=== PATIENT | female | born 1945 | race Caucasian/White ===

== ENCOUNTER 2025-05-24 12:49 | Outpatient (AMB) | payer MEDICARE, SELFPAY ==
--- OUTSIDE RECORDS SUMMARY | 2025-05-24 13:17 | XMS_ITS | Encounter Summary ---
Author Organization [facility] [place], Address [address] [place] [address] Phone Care Team Providers Care Manager Sap Name Role Phone Jhonatan Angel MD Primary Care Provider [phone] Encounter Details Date Type Department Care Team ([facility] Contact Info) Description 03/21/2020 Orders Only [facility] [address] [place] [phone] Edgardo Laurent DO [address] [facility] [place] [address] Persistent proteinuria Social History Tobacco Use Types Packs/Day Years Used Date Smoking Tobacco: Never Assessed Alcohol Use Standard Drinks/Week Comments Yes 0 (1 standard drink = 0.6 oz pure alcohol) Alcoholic Drinks/day: Occasional social drink Comments Unknown Sex and Gender Information Value Date Recorded Sex Assigned at Not on file Legal Sex Female 4:33 PM EST Gender Identity Not on file Sexual Orientation Not on file COVID-19 Exposure Response Date Recorded In the last month, have you been in contact with someone who was confirmed or suspected to have Coronavirus / COVID-19? No / Unsure 2020 1:24 PM EDT documented as of this encounter Plan of Treatment Upcoming Encounters Date Type Department Care Team (Late Contact Info) Description 08/16/2025 3:15 PM EST Office Visit [facility], [address] [place] [phone] Edgardo Laurent DO [address] [place] [address] documented as of this encounter Visit Diagnoses Diagnosis Persistent proteinuria documented in this encounter Care Teams Manager Sap Relationship Specialty Start Date End Date Jhonatan Angel MD [address] PCP - General Internal Medicine 06/17/20 documented as of this encounter
--- OUTSIDE RECORDS SUMMARY | 2025-05-24 13:17 | XMS_ITS | Encounter Summary ---
Author Organization [facility] [place], Address [address] [place] [address] Phone Care Team Providers Care Bus Driver Supervisor Name Role Phone Jhonatan Angel MD Primary Care Provider [phone] Encounter Details Date Type Department Care Team (Late Contact Info) Description 11/11/2023 Orders Only [facility] [address] [place] [phone] Edgardo Laurent DO [address] [facility] [place] [phone] Nephrotic syndrome; Minimal change disease; Type 2 diabetes mellitus with diabetic chronic kidney disease (HCC) Social History Tobacco Use Types Packs/Day Years Used Date Smoking Tobacco: Former Cigarettes Q uit: 09/26/1984 Comments:Smoking History Inf o:Every day Alcohol Use Standard Drinks/Week Comments Yes 0 (1 standard drink = 0.6 oz pure alcohol) Alcoholic Drinks/day: Occasional social drink Comments Unknown Sex and Gender Information Value Date Recorded Sex Assigned at Not on file Legal Sex Female 4:33 PM EST Gender Identity Not on file Sexual Orientation Not on file documented as of this encounter Plan of Treatment Upcoming Encounters Date Type Department Care Team (Late Contact Info) Description 08/16/2025 3:15 PM EST Office Visit [facility] [address] [place] [phone] Edgardo Laurent DO [address] [facility] [place] [address] documented as of this encounter Visit Diagnoses Diagnosis Nephrotic syndrome Minimal change disease Type 2 diabetes mellitus with diabetic chronic kidney disease (HCC) documented in this encounter Care Teams Bus Driver Supervisor Relationship Specialty Start Date End Date Jhonatan Angel MD [address] PCP - General Internal Medicine 06/17/20 documented as of this encounter
--- OUTSIDE RECORDS SUMMARY | 2025-05-24 13:17 | XMS_ITS | Encounter Summary ---
Author Organization [facility] [place], Address [address] [place] [address] Phone Care Team Providers Care Welding Machine Operator Plasma Arc Name Role Phone Jhonatan Angel MD Primary Care Provider [phone] Encounter Details Date Type Department Care Team (Late Contact Info) Description 12/09/2023 Orders Only [facility] [address] [place] [phone] Edgardo Laurent DO [address] [facility] [place] [phone] Nephrotic syndrome; Minimal change disease; Type 2 [...] Visit [facility] [address] [place] [phone] Edgardo Laurent DO [address] [facility] [place] [address] documented as of this encounter Visit Diagnoses Diagnosis Nephrotic syndrome Minimal change disease Type 2 diabetes mellitus with diabetic chronic kidney disease (HCC) documented in this encounter Care Teams Welding Machine Operator Plasma Arc Relationship Specialty Start Date End Date Jhonatan Angel MD [address] PCP - General Internal Medicine 06/17/20 documented as of this encounter
--- OUTSIDE RECORDS SUMMARY | 2025-05-24 13:17 | XMS_ITS | Encounter Summary ---
Author Organization [facility] [place], Address [address] [place] [address] Phone Care Team Providers Care Statement Clerks Supervisor Name Role Phone Jhonatan Angel MD Primary Care Provider [phone] Encounter Details Date Type Department Care Team (Late Contact Info) Description 09/02/2023 Orders Only [facility] [address] [place] [phone] Edgardo Laurent DO [address] [facility] [place] [phone] Nephrotic syndrome; Minimal change disease; Type 2 [...] Visit [facility] [address] [place] [phone] Edgardo Laurent DO [address] [facility] [place] [address] documented as of this encounter Visit Diagnoses Diagnosis Nephrotic syndrome Minimal change disease Type 2 diabetes mellitus with diabetic chronic kidney disease (HCC) documented in this encounter Care Teams Statement Clerks Supervisor Relationship Specialty Start Date End Date Jhonatan Angel MD [address] PCP - General Internal Medicine 06/17/20 documented as of this encounter
--- OUTSIDE RECORDS SUMMARY | 2025-05-24 13:17 | XMS_ITS | Encounter Summary ---
Author Organization [facility] [place], Address [address] [place] [address] Phone Care Team Providers Care Maintenance Mechanic Technician Name Role Phone Jhonatan Angel MD Primary Care Provider Encounter Details Date Type Department Care Team (Late Contact Info) Description 01/06/2024 Orders Only [facility] [address] [place] [place] [address] Edgardo Laurent DO [address] [facility] [place] [phone] Nephrotic syndrome; Minimal change disease; Type 2 [...] Visit [facility] [address] [place] [place] [address] Edgardo Laurent DO [address] [facility] [place] [address] documented as of this encounter Visit Diagnoses Diagnosis Nephrotic syndrome Minimal change disease Type 2 diabetes mellitus with diabetic chronic kidney disease (HCC) documented in this encounter Care Teams Maintenance Mechanic Technician Relationship Specialty Start Date End Date Jhonatan Angel MD [address] PCP - General Internal Medicine 06/17/20 documented as of this encounter
--- OUTSIDE RECORDS SUMMARY | 2025-05-24 13:17 | XMS_ITS | Encounter Summary ---
Author Organization [facility] Address [address] [place] [address] Phone Care Team Providers Care Retort Pre Cooker Name Role Phone Jhonatan Angel MD Primary Care Provider [phone] Encounter Details Date Type Department Care Team (Late Contact Info) Description 03/08/2023 Documentation Only [facility] [address] [place] [address] Edgardo Laurent DO [address] [facility] [place] [address] Social History Tobacco Use Types Packs/Day Years [...] [facility] [address] [facility] [place] [address] Edgardo Laurent DO [address] [facility] [address] [place] [address] documented as of this encounter Visit Diagnoses Not on filedocumented in this encounter Care Teams Retort Pre Cooker Relationship Specialty Start Date End Date Jhonatan Angel MD [address] PCP - General Internal Medicine 06/17/20 documented as of this encounter
--- OUTSIDE RECORDS SUMMARY | 2025-05-24 13:17 | XMS_ITS | Encounter Summary ---
Author Organization [facility] Address [address] [place] [address] Phone Care Team Providers Care Finance Professional Name Role Phone Jhonatan Angel MD Primary Care Provider [phone] Encounter Details Date Type Department Care Team (Late Contact Info) Description 05/02/2024 Documentation Only [facility] [address] [place] [address] Edgardo Laurent DO [address] [facility] [place] [address] Social History Tobacco Use Types [...] Visit [facility] [address] [address] [address] [place] [address] Edgardo Laurent DO [address] [facility] [place] [address] documented as of this encounter Visit Diagnoses Not on filedocumented in this encounter Care Teams Finance Professional Relationship Specialty Start Date End Date Jhonatan Angel MD [address] PCP - General Internal Medicine 06/17/20 documented as of this encounter
--- OUTSIDE RECORDS SUMMARY | 2025-05-24 13:17 | XMS_ITS | Encounter Summary ---
Author Organization [address] [address] Care Team Providers Care Pelt Salter Name Role Phone Jhonatan Angel MD Primary Care Provider [phone] Mohit Ibarra Primary Care Provider [phone] Encounter Details Date Type Department Care Team (Late st Contact Info) Description 01/04/2020 Scanned Document [facility] Neurology [address] [address] Alison Blood MD [address] [place] [address] Social History Tobacco Use Types Packs/Day Years Used Date Smoking Tobacco: Never Assessed Comments Unknown Sex and Gender Information Value Date Recorded Sex Assigned at Not on file Legal Sex Female 8:55 AM EDT Gender Identity Not on file Sexual Orientation Not on file documented as of this encounter Plan of Treatment Not on file documented as of this encounter Visit Diagnoses Not on filedocumented in this encounter Care Teams Pelt Salter Relationship Specialty Start Date End Date Jhonatan Angel MD [address] [place] [id number] PCP - General Internal Medicine 01/04/20 01/28/20 Mohit Ibarra [address] [place] [address] PCP - General 01/29/20 documented as of this encounter
--- OUTSIDE RECORDS SUMMARY | 2025-05-24 13:17 | XMS_ITS | Encounter Summary ---
Author Organization [facility] Address [address] [place] [address] Phone Care Team Providers Care Clerk Analyst Name Role Phone Jhonatan Angel MD Primary Care Provider [phone] Encounter Details Date Type Department Care Team (Late Contact Info) Description 08/25/2023 Documentation Only [facility] [address] [place] [address] [place] [address] [place] [address] Social History Tobacco Use Types Packs/Day Years [...] Visit [facility] [address] [place] [address] Edgardo Laurent [address] [place] [address] documented as of this encounter Visit Diagnoses Not on filedocumented in this encounter Care Teams Clerk Analyst Relationship Specialty Start Date End Date Jhonatan Angel MD [address] PCP - General Internal Medicine 06/17/20 documented as of this encounter
--- OUTSIDE RECORDS SUMMARY | 2025-05-24 13:17 | XMS_ITS | Encounter Summary ---
Author Organization [facility] [place], Address [address] [place] [address] Phone Care Team Providers Care Cut Out Worker Name Role Phone Jhonatan Angel MD Primary Care Provider [phone] Encounter Details Date Type Department Care Team (Late Contact Info) Description 03/28/2020 Orders Only [facility] [address] [place] [phone] Edgardo Laurent DO [address] [facility] [place] [address] Persistent proteinuria Social History Tobacco [...] Office Visit [facility], [address] [place] [address] Edgardo Laurent DO [address] [place] [address] documented as of this encounter Visit Diagnoses Diagnosis Persistent proteinuria documented in this encounter Care Teams Cut Out Worker Relationship Specialty Start Date End Date Jhonatan Angel MD [address] PCP - General Internal Medicine 06/17/20 documented as of this encounter
--- OUTSIDE RECORDS SUMMARY | 2025-05-24 13:17 | XMS_ITS | Encounter Summary ---
Author Organization [facility] [place], Address [address] [place] [address] Phone Care Team Providers Care Vocational Aide Name Role Phone Jhonatan Angel MD Primary Care Provider [phone] Encounter Details Date Type Department Care Team (Late Contact Info) Description 04/04/2020 Orders Only [facility] [address] [place] [phone] Edgardo Laurent DO [address] [facility] [place] [address] Persistent proteinuria Social History Tobacco [...] Office Visit [facility], [address] [place] [address] Edgardo Laurent DO [address] [place] [address] documented as of this encounter Procedures Procedure Name Priority Date/Time Associated Diagnosis Comments PROTEIN / CREATININE RATIO, URINE Routine 05/30/2020 2:25 PM EDT Persistent proteinuria documented in this encounter Results * (ABNORMAL) Urine Protein / creatinine ratio (05/30/2020 2:25 PM EDT) Protein/Creati ne Ratio 0.81(H) (0-0.2) [facility] Protein, Urine 129 MG/DL [facility] Creatinine, Urine 158.8 MG/DL [facility] Comment: Testing performed or reported by [facility], a Service of [facility], [address] [place] [address] Malachi Dumont MD, Doula Urine specimen (specimen) Urine specimen obtained by clean catch procedure / Unknown 05/30/2020 2:25 PM EDT 05/30/2020 2:40 PM EDT us Edgardo Laurent DO LAB URINE ORDERABLES Final Resu lt [facility] documented in this encounter Visit Diagnoses Diagnosis Persistent proteinuria documented in this encounter Care Teams Vocational Aide Relationship Specialty Start Date End Date Jhonatan Angel MD [address] PCP - General Internal Medicine 06/17/20 documented as of this encounter
--- OUTSIDE RECORDS SUMMARY | 2025-05-24 13:17 | XMS_ITS | Encounter Summary ---
Author Organization [facility] [place], Address [address] [place] [address] Phone Care Team Providers Care Wall Man Name Role Phone Jhonatan Angel MD Primary Care Provider [phone] Encounter Details Date Type Department Care Team (Late Contact Info) Description 05/27/2023 Orders Only [facility] [address] [place] [address] Edgardo Laurent DO [address] [facility] [place] [address] Minimal change disease; Type 2 diabetes mellitus with diabetic nephropathy (HCC); Stage 3a chronic kidney disease (HCC); Essential hypertension Social History Tobacco Use Types Packs/Day Years [...] Visit [facility] [address] [place] [phone] Edgardo Laurent DO [address] [facility] 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) Stage 3a chronic kidney disease (HCC) Essential hypertension HEMOGLOBIN A1C Routine 07/05/2023 1:53 PM EDT 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 DIAGNOSTIC USE: The [place] Diabetes Association (ADA) and the World Health Organization (WHO) recommend the use of HbA1c to diagnose diabetes using a threshold of 6.5%. Patients who have an HbA1c between 5.7% and 6.4% are considered at increased risk for developing diabetes in the future. CAUTION: Falsely low HbA1c results may be observed in patients with hemolytic anemia, homozygous forms of abnormal hemoglobin (e.g. SS, CC, SC), , recent blood loss or hemoglobin F greater than 7%. Fructosamine may be used as an alternate test in these cases. REFERENCE: ADA: Standards of Medical Care in Diabetes 2020, The Journal of Clinical and Applied Research and Education Volume 43, Supplement 1 Testing performed or reported by [facility], a Service of [facility], [address] [place] [address] Wolfgang Moore MD, Basket Turner CLOR# [id number] Blood specimen (specimen) Venous blood / Unknown 07/05/2023 1:53 PM EDT 07/05/2023 1:55 PM EDT Edgardochino Laurent LAB BLOOD ORDERABLES Final Resu lt Performing Organization Address [facility] Co de Phone Number [facility] * (ABNORMAL) Urine Protein / creatinine ratio (07/05/2023 1:53 PM EDT) [facility] Protein/Creati ne Ratio 0.24(H) (0-0.2) [facility] Protein, Urine 6 MG/DL [facility] Creatinine, Urine 24.4 MG/DL [facility] Comment: Testing performed or reported by [facility], a Service of [facility], [address] [place] [address] Wolfgang Moore MD, Basket Turner [facility]# [id number] Urine specimen (specimen) Urine specimen obtained by clean catch procedure / Unknown 07/05/2023 1:53 PM EDT 07/05/2023 1:55 PM EDT Edgardo Laurent LAB URINE ORDERABLES Final Resu lt Performing Organization Address [facility]/ZIP Co de Phone Number [facility] * (ABNORMAL) CBC (07/05/2023 1:53 PM EDT) Pathologist [facility] White Blood Cells 9.0 (4.0-11.0) K/MM3 [facility] RBC 4.74 (4.20-5.40 ) M/MM3 [facility] Hgb 13.1 (11.7-15.5 ) GM/DL [facility] Hematocrit 42.4 (35.7-45.8 ) % [facility] MCV 89.5 (80.0-100. 0) FL [facility] MCH 27.6 (27.0-34.0 ) PG [facility] MCHC 30.9(L) (33.0-37.0 ) g/dL [facility] Platelets 347 (150-460) K/MM3 [facility] RDW-SD 49.1(H) (<47.0) FL [facility] MPV 10.3 (9.4-12.4) FL [facility] nRBC Count 0.0 #/100 WBC'S [facility] NRBC Absolute 0.0 K/MM3 [facility] Comment: Testing performed or reported by [facility], a Service of [facility], [address] [place] [address] Wolfgang Moore MD, Basket Turner CLIA# [id number] Blood specimen (specimen) Venous blood / Unknown 07/05/2023 1:53 PM EDT 07/05/2023 1:55 PM EDT Edgardo Laurent LAB BLOOD ORDERABLES Final Resu lt Performing Organization Address [facility]/ZIP Co de Phone Number [facility] * (ABNORMAL) Cyclosporine level (07/05/2023 1:53 PM EDT) Cyclosporine 99(L) (100-350) NG/ML [facility] Comment: Testing performed or reported by [facility], a Service of [facility], [address] [place] [address] Wolfgang Moore MD, Basket Turner CLIA# [id number] Blood specimen (specimen) Venous blood / Unknown 07/05/2023 1:53 PM EDT 07/05/2023 1:55 PM EDT Edgardo Laurent LAB BLOOD ORDERABLES Final Resu lt [facility] * (ABNORMAL) Comprehensive metabolic panel (07/05/2023 1:53 PM EDT) Glucose 176(H) (70-99) MG/DL [facility] BUN 34(H) (8-23) MG/DL [facility] Creatinine 1.3(H) (0.5-1.0) MG/DL [facility] Sodium 142 (133-145) MMOL/L [facility] Potassium 4.6 (3.6-5.2) MMOL/L [facility] Chloride 105 (98-107) MMOL/L [facility] Bicarbonate (CO2) 24 (22-29) MMOL/L [facility] Anion Gap 13 (4-17) [facility] Albumin 4.2 (3.4-4.8) GM/DL [facility] Calcium 10.5 (8.6-10.5) MG/DL [facility] Total Bilirubin 0.4 (0-1.2) MG/DL [facility] Protein, Total 6.6 (6.2-8.2) GM/DL [facility] A/G Ratio 1.8 [facility] AST (SGOT) 26 (0-32) U/L [facility] Alkaline Phosphatase 181(H) (35-104) U/L [facility] ALT (SGPT) 32 (0-33) U/L [facility] Est GFR Non 41 ML/MIN/1.7 3 M2 [facility] Comment: Creatinine based estimated glomerular filtration (eGFR) in adults is calculated using the National Kidney Foundation recommended 2020 CKD-EPI equation. Estimates GFR from serum creatinine, age and sex. 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
--- OUTSIDE RECORDS SUMMARY | 2025-05-24 13:17 | XMS_ITS | Encounter Summary ---
Author Organization [facility] [place], Address [address] [place] [address] Phone Care Team Providers Care Planer Off Bearer Name Role Phone Jhonatan Angel MD Primary Care Provider [phone] Encounter Details Date Type Department Care Team ([facility] Contact Info) Description 03/14/2020 Orders Only [facility] [address] [place] [phone] Edgardo Laurent DO [address] [address] Persistent proteinuria Social History Tobacco [...] Office Visit [facility], [address] [place] [phone] Edgardo Laurent DO [address] [place] [address] documented as of this encounter Visit Diagnoses Diagnosis Persistent proteinuria documented in this encounter Care Teams Planer Off Bearer Relationship Specialty Start Date End Date Jhonatan Angel MD [address] PCP - General Internal Medicine 06/17/20 documented as of this encounter
--- OUTSIDE RECORDS SUMMARY | 2025-05-24 13:17 | XMS_ITS | Encounter Summary ---
Author Organization [facility] Address [address] [place] [address] Phone Care Team Providers Care Corporate Trust Officer Name Role Phone Jhonatan Angel MD Primary Care Provider [phone] Encounter Details Date Type Department Care Team (Late Contact Info) Description 08/29/2023 Documentation Only [facility] [address] [place] [address] [place], [place] [address] [place] [address] Social History Tobacco Use Types [...] Visit [facility] [address] [place] [address] Edgardo Laurent [address] [place] [address] documented as of this encounter Visit Diagnoses Not on filedocumented in this encounter Care Teams Corporate Trust Officer Relationship Specialty Start Date End Date Jhonatan Angel MD [address] PCP - General Internal Medicine 06/17/20 documented as of this encounter
--- OUTSIDE RECORDS SUMMARY | 2025-05-24 13:17 | XMS_ITS | Encounter Summary ---
Author Organization [facility] Address [address] [place] [address] Phone Care Team Providers Care Epic Director Name Role Phone Jhonatan Angel MD Primary Care Provider [phone] Encounter Details Date Type Department Care Team (Late Contact Info) Description 02/23/2023 Documentation Only [facility] [address] [place] [address] [place] [address] [place] [address] Social History Tobacco Use Types [...] Visit [facility] [address] [place] [address] Edgardo Laurent [address] [place] [address] documented as of this encounter Visit Diagnoses Not on filedocumented in this encounter Care Teams Epic Director Relationship Specialty Start Date End Date Jhonatan Angel MD [address] PCP - General Internal Medicine 06/17/20 documented as of this encounter
--- OUTSIDE RECORDS SUMMARY | 2025-05-24 13:17 | XMS_ITS | Encounter Summary ---
Author Organization [facility] [place], Address [address] [place] [address] Phone Care Team Providers Care Beef Tagger Name Role Phone Jhonatan Angel MD Primary Care Provider [phone] Encounter Details Date Type Department Care Team (Late Contact Info) Description 09/16/2023 Orders Only [facility] [address] [place] [address] Edgardo Laurent DO [address] [place] [address] Nephrotic syndrome; Minimal change disease; Type 2 [...] Visit [facility] [address] [place] [phone] Edgardo Laurent DO [address] 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) documented in this encounter Results * (ABNORMAL) Comprehensive metabolic panel (11/16/2023 3:26 PM EST) Glucose 180(H) (70-99) MG/DL [facility] BUN 37(H) (8-23) MG/DL [facility] Creatinine 1.3(H) (0.5-1.0) MG/DL [facility] Sodium 140 (133-145) MMOL/L [facility] Potassium 5.4(H) (3.6-5.2) MMOL/L [facility] Chloride 104 (98-107) MMOL/L [facility] Bicarbonate (CO2) 27 (22-29) MMOL/L [facility] Anion Gap 9 (4-17) [facility] Albumin 4.1 (3.4-4.8) GM/DL [facility] Calcium 11.4(H) (8.6-10.5) MG/DL [facility] Total Bilirubin 0.6 (0-1.2) MG/DL [facility] Protein, Total 7.0 (6.2-8.2) GM/DL [facility] A/G Ratio 1.4 [facility] AST (SGOT) 20 (0-32) U/L [facility] Alkaline Phosphatase 166(H) (35-104) U/L [facility] ALT (SGPT) 18 (0-33) U/L [facility] Est GFR Non 42 ML/MIN/1.7 3 M2 [facility] Comment: Creatinine based estimated glomerular filtration (eGFR) in adults is calculated using the National Kidney Foundation recommended 2020 CKD-EPI equation. Estimates GFR from serum creatinine, age and sex. Testing performed or reported by [facility], a Service of [facility], [address] [place] [address] Wolfgang Moore MD, Vtc Technician CLIA# [id number] Blood specimen (specimen) Venous blood / Unknown 11/16/2023 3:26 PM EST 11/16/2023 3:28 PM EST Edgardo Laurent DO LAB BLOOD ORDERABLES Final Resu lt Performing Organization Address [facility] de Phone Number [facility] * Urine Protein / creatinine ratio (11/16/2023 3:26 PM EST) Protein/Creatin e Ratio 0.12 (0-0.2) [facility] Protein, Urine 20 MG/DL [facility] Creatinine, Urine 165.7 MG/DL [facility] Comment: Testing performed or reported by [facility], a Service of [address] [address] Wolfgang Moore MD, Vtc Technician CLIA# [id number] Urine specimen (specimen) Urine specimen obtained by clean catch procedure / Unknown 11/16/2023 3:26 PM EST 11/16/2023 3:28 PM EST Edgardo Mehran VAZQUEZ LAB URINE ORDERABLES Final Resu lt Performing Organization Address [facility] Phone Number [facility] documented in this encounter Visit Diagnoses Diagnosis Nephrotic syndrome Minimal change 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
--- OUTSIDE RECORDS SUMMARY | 2025-05-24 13:17 | XMS_ITS | Encounter Summary ---
Author Organization [facility] Address [address] [place] [address] Phone Care Team Providers Care Supervisor Alum Plant Name Role Phone Jhonatan Angel MD Primary Care Provider [phone] Encounter Details Date Type Department Care Team (Late Contact Info) Description 09/28/2022 Documentation Only [facility] [address] [place] [address] Edgardo Laurent DO [address] [place] [address] Social History Tobacco Use Types [...] [facility] [address] [place] [address] Edgardo Laurent DO [address] [place] [address] documented as of this encounter Visit Diagnoses Diagnosis Minimal change disease- Primary documented in this encounter Care Teams Supervisor Alum Plant Relationship Specialty Start Date End Date Jhonatan Angel MD [address] PCP - General Internal Medicine 06/17/20 documented as of this encounter
--- OUTSIDE RECORDS SUMMARY | 2025-05-24 13:17 | XMS_ITS | Clinical Summary ---
Author Organization [facility] Address [address] [place] [address] Care Team Providers Care Yard Spotter Name Role Phone Fred Mohit Primary Care Provider [phone] Allergies Active Allergy Reactions Criticality Noted Date Comments Sulfa Antibiotics Rash/Dermatitis Low 11/15/2019 Medications cyanocobalamin (VITAMIN B-12) 1000 MCG tablet Take 1,000 mcg by mouth daily. Active cycloSPORINE MODIFIED (NEORAL) 25 MG capsule Take 50 mg by mouth 2 (two) times a day. 01/13/2020 Active DULoxetine (CYMBALTA) 60 MG capsule Take 60 mg by mouth daily. 12/13/2019 Active DULoxetine (CYMBALTA) 30 MG capsule Take 90 mg by mouth daily. Active famotidine (PEPCID) 20 MG tablet Take 20 mg by mouth 2 (two) times a day. 01/13/2020 Active insulin detemir (LevEMIR) 100 UNITS/ML injection Inject 42 Units under the skin nightly. SS Active HUMALOG KWIKPEN 100 UNIT/ML injection USE DIRECTED PER SLIDING SCALE. BEFORE MEALS THREE TIMES A DAY AND AT BEDTIME MAX OF 100 UNITS DAILY 11/03/2019 Active LORazepam (ATIVAN) 1 MG tablet Take 1 mg by mouth 3 (three) times a day as needed. 12/13/2019 Active metFORMIN (GLUCOPHAGE) 500 MG tablet Take 500 mg by mouth 2 (two) times a day. Active multivitamin (multivitamin) Tab tablet Take 1 tablet by mouth daily. Active mycophenolate (CELLCEPT) 500 MG tablet Take 500 mg by mouth 2 (two) times a day. 12/06/2019 Active nystatin (MYCOSTATIN) 986820 UNIT/ML suspension Take 5 mL by mouth daily as needed. 12/17/2019 Active rosuvastatin (CRESTOR) 10 MG tablet Take 10 mg by mouth daily. Active JANUVIA 50 MG tablet Take 50 mg by mouth daily. 12/28/2019 Active Calcium-Magnesi um-Vitamin D (CITRACAL CALCIUM+D PO) Take by mouth daily. Active Family History Medical History Relation Name Comments Heart attack Father Movement disorder Mother Parkinsonism Mother Relation Name Status Comments Brother brain bleed Father Mother Social History Tobacco Use Types Packs/Day Years Used Date Smoking Tobacco: Former Cigarettes Q uit: 1989 Smokeless Tobacco: Never Alcohol Use Standard Drinks/Week Comments Yes 0 (1 standard drink = 0.6 oz pur e alcohol) rarely Comments No Sex and Gender Information Value Date Recorded Sex Assigned at Not on file Legal Sex Female 8:55 AM EDT Gender Identity Not on file Sexual Orientation Not on file Last Filed Vital Signs Vital Sign Reading Time Taken Comments Blood Pressure - - Pulse - - Temperature - - Respiratory Rate - - Oxygen Saturation - - Inhaled Oxygen Concentration - - Weight 64.4 kg (142 lb) 01/16/2020 12:44 PM EDT Height 152.4 cm (5') 01/16/2020 12:44 PM EDT Body Mass Index 27.73 01/16/2020 12:44 PM EDT Plan of Treatment Health Maintenance Due Date Last Done Comments Advance Care Planning 1945 COVID-19 Vaccine (#1) 1950 DTaP/Tdap/Td Vaccines (1 - Tdap) 1964 Pneumococcal Vaccines 50+ (1 of 2 - PCV) 1964 Zoster (Shingles) Vaccine (1 of 2) 1964 DXA Bone Density (Females,Ag es 65 and older) 2010 RSV Vaccine 60 years and old er and Patients (1 - 1-dose 75+ series) 2020 Influenza Vaccine 04/26/2025 06/30/2019 Hepatitis B Vaccines Aged Out No long er eligible based on patient's age to complete this topic Insurance [facility] MEDICARE Care Teams Yard Spotter Relationship Specialty Start Date End Date Mohit Ibarra [address] [place] [address] PCP - General 01/29/20
--- OUTSIDE RECORDS SUMMARY | 2025-05-24 13:17 | XMS_ITS | Encounter Summary ---
Author Organization [facility] Address [address] [place] [address] Phone Care Team Providers Care Box Office Manager Name Role Phone Jhonatan Angel MD Primary Care Provider [phone] Encounter Details Date Type Department Care Team (Late Contact Info) Description 02/22/2023 Documentation Only [facility] [address] [place] [address] [place] [address] [place] [address] Social History Tobacco Use Types [...] Services Of [facility] [address] [place] [address] Edgardo Laurent [address] [place] [address] documented as of this encounter Visit Diagnoses Not on filedocumented in this encounter Care Teams Box Office Manager Relationship Specialty Start Date End Date Jhonatan Angel MD [address] PCP - General Internal Medicine 06/17/20 documented as of this encounter
--- OUTSIDE RECORDS SUMMARY | 2025-05-24 13:17 | XMS_ITS | Encounter Summary ---
Author Organization [facility] [place], Address [address] [place] [address] Phone Care Team Providers Care Multi Needle Machine Operator Name Role Phone Jhonatan Angel MD Primary Care Provider [phone] Encounter Details Date Type Department Care Team (Late Contact Info) Description 10/14/2023 Orders Only [facility] [address] [place] [address] Edgardo Laurent DO [address] [place] [address] Nephrotic syndrome; Minimal change disease; Type 2 [...] Visit [facility] [address] [place] [address] Edgardo Laurent DO [address] 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
--- OUTSIDE RECORDS SUMMARY | 2025-05-24 13:17 | XMS_ITS | Encounter Summary ---
Author Organization [facility] [place], Address [address] [place] [address] Phone Care Team Providers Care Tangled Yarn Spool Straightener Name Role Phone Jhonatan Angel MD Primary Care Provider [phone] Encounter Details Date Type Department Care Team (Late Contact Info) Description 12/10/2022 Orders Only [facility] [address] [place] [address] Edgardo Laurent DO [address] [address] [place] [address] Minimal change disease; Type 2 [...] Visit [facility] [address] [place] [address] Edgardo Laurent DO [address] [address] 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) Stage 3a chronic kidney disease (HCC) Essential hypertension HEMOGLOBIN A1C Routine 01/25/2023 10:06 AM EDT 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) Stage 3a chronic kidney disease (HCC) Essential hypertension COMPREHENSIVE METABOLIC PANEL Routine 01/25/2023 10:06 AM EDT 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) Stage 3a chronic kidney disease (HCC) Essential hypertension documented in this encounter Results * (ABNORMAL) Protein, Total, Random Urine w/Creatinine (Protein/Creat Ratio) (01/25/2023 10:06 AM EDT) Protein/Creati ne Ratio 11.74(H) (0-0.2) [facility] Protein, Urine 1476 MG/DL [facility] Creatinine, Urine 125.7 MG/DL [facility] Comment: Testing performed or reported by [facility], a Service of [facility], [address] [place] [address] Malachi Dumont MD, Circulation Librarian [facility]# [id number] 01/25/2023 10:0 6 AM EDT 01/25/2023 10:08 AM EDT Edgardo Laurent DO LAB URINE ORDERABLES Final Resu lt [facility] * (ABNORMAL) Hemoglobin A1c (01/25/2023 10:06 AM EDT) Hemoglobin A1C 9.4(H) (4.0-5.6) % [facility] Comment: MONITORING: In known diabetic patients, hemoglobin A1c targets should be discussed with health care provider. DIAGNOSTIC USE: The [place] Diabetes Association (ADA) and the World Health [...] Supplement 1 Testing performed or reported by [facility], a Service of [facility], [address] [place] [address] Malachi Dumont MD, Circulation Librarian [facility]# [id number] Blood specimen (specimen) Venous blood / Unknown 01/25/2023 10:06 AM EDT 01/25/2023 10:08 AM EDT us Edgardo Laurent DO LAB BLOOD ORDERABLES Final Resu lt [facility] * (ABNORMAL) CBC (01/25/2023 10:06 AM EDT) White Blood Cells 8.2 (4.0-11.0) K/MM3 [facility] RBC 4.71 (4.20-5.40 ) M/MM3 [facility] Hgb 12.8 (11.7-15.5 ) GM/DL [facility] Hematocrit 41.4 (35.7-45.8 ) % [facility] MCV 87.9 (80.0-100. 0) FL [facility] MCH 27.2 (27.0-34.0 ) PG [facility] MCHC 30.9(L) (33.0-37.0 ) g/dL [facility] Platelets 383 (150-460) K/MM3 [facility] RDW-SD 47.2(H) (<47.0) [place] [facility] MPV 10.4 (9.4-12.4) [place] [facility] nRBC Count 0.0 #/100 WBC'S [facility] NRBC Absolute 0.0 K/MM3 [facility] Comment: Testing performed or reported by [facility], a Service of [facility], [address] [place] [address] Malachi Dumont MD, Circulation Librarian CLIA# [id number] Blood specimen (specimen) Venous blood / Unknown 01/25/2023 10:06 AM EDT 01/25/2023 10:08 AM EDT Edgardo Laurent LAB BLOOD ORDERABLES Final Resu lt Performing Organization Address [facility]/ZIP Co de Phone Number [facility] * Cyclosporine level (01/25/2023 10:06 AM EDT) Pathologist [facility] Cyclosporine 120 (100-350) NG/ML [facility] Comment: Testing performed or reported by [facility], a Service of [facility], [address] [place] [address] Wolfgang Moore MD, Circulation Librarian [place]# [id number] Blood specimen (specimen) Venous blood / Unknown 01/25/2023 10:06 AM EDT 01/25/2023 10:08 AM EDT Edgardo Laurent LAB BLOOD ORDERABLES Final Resu lt [facility] * (ABNORMAL) Comprehensive metabolic panel (01/25/2023 10:06 AM EDT) Glucose 215(H) (70-99) MG/DL [facility] BUN 26(H) (8-23) MG/DL [facility] Creatinine 1.0 (0.5-1.0) MG/DL [facility] Sodium 139 (133-145) MMOL/L [facility] Potassium 5.2 (3.6-5.2) MMOL/L [facility] Chloride 105 (98-107) MMOL/L [facility] Bicarbonate (CO2) 27 (22-29) MMOL/L [facility] Anion Gap 7 (4-17) [facility] Albumin 2.8(L) (3.4-4.8) GM/DL [facility] Calcium 9.8 (8.6-10.5) MG/DL [facility] Total Bilirubin 0.3 (0-1.2) MG/DL [facility] Protein, Total 5.6(L) (6.2-8.2) GM/DL [facility] A/G Ratio 1.0 [facility] AST (SGOT) 17 (0-32) U/L [facility] Alkaline Phosphatase 139(H) (35-104) U/L [facility] ALT (SGPT) 11 (0-33) U/L [facility] Est GFR Non 59 ML/MIN/1.7 3 M2 [facility] Comment: Creatinine based estimated glomerular filtration (eGFR) in adults is calculated using the National Kidney Foundation recommended 2020 CKD-EPI equation. Estimates GFR from serum creatinine, age and sex. 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
--- OUTSIDE RECORDS SUMMARY | 2025-05-24 13:17 | XMS_ITS | Encounter Summary ---
Author Organization [facility] Address [address] [place] [address] Phone Care Team Providers Care Fitness Centre Manager Name Role Phone Jhonatan Angel MD Primary Care Provider [phone] Encounter Details Date Type Department Care Team (Late Contact Info) Description 02/22/2023 Documentation Only [facility] [address] [place] [address] [place], [place] [address] [place] [address] Social History Tobacco Use Types [...] Visit [facility] [address] [place] [address] Edgardo Laurent [address] [place] [address] documented as of this encounter Visit Diagnoses Not on filedocumented in this encounter Care Teams Fitness Centre Manager Relationship Specialty Start Date End Date Jhonatan Angel MD [address] PCP - General Internal Medicine 06/17/20 documented as of this encounter
--- OUTSIDE RECORDS SUMMARY | 2025-05-24 13:17 | XMS_ITS | Encounter Summary ---
Author Organization [facility], Address [address] [place] [address] Phone Care Team Providers Care Optical Effects Camera Operator Name Role Phone Jhonatan Angel MD Primary Care Provider Encounter Details Date Type Department Care Team ([facility] Contact Info) Description 03/07/2020 Orders Only [facility] [address] [place] [phone] Edgardo Laurent DO [address] [facility] [place] [address] Persistent proteinuria Social History Tobacco [...] Office Visit [facility], [address] [place] [phone] Edgardo Laurent DO [address] [place] [address] documented as of this encounter Procedures Procedure Name Priority Date/Time Associated Diagnosis Comments PROTEIN / CREATININE RATIO, URINE Routine 03/24/2020 12:15 PM EDT Persistent proteinuria documented in this encounter Results * Urine Protein / creatinine ratio (03/24/2020 12:15 PM EDT) Protein/Creatin e Ratio 0.14 (0-0.2) [facility] Protein, Urine 25 MG/DL [facility] Creatinine, Urine 173.8 MG/DL [facility] Comment: Testing performed or reported by [facility], a Service of [facility], [address] [place] [id number] Malachi Dumont MD, Rn Dialysis Urine specimen (specimen) Urine specimen obtained by clean catch procedure / Unknown 03/24/2020 12:15 PM EDT 03/24/2020 1:53 PM EDT us Edgardo Laurent DO LAB URINE ORDERABLES Final Resu lt [facility] documented in this encounter Visit Diagnoses Diagnosis Persistent proteinuria documented in this encounter Care Teams Optical Effects Camera Operator Relationship Specialty Start Date End Date Jhonatan Angel MD [address] PCP - General Internal Medicine 06/17/20 documented as of this encounter
--- OUTSIDE RECORDS SUMMARY | 2025-05-24 13:17 | XMS_ITS | Encounter Summary ---
Author Organization [facility], Address [address] [place] [address] Phone Care Team Providers Care Aircraft Technician Name Role Phone Jhonatan Angel MD Primary Care Provider [phone] Encounter Details Date Type Department Care Team (Late Contact Info) Description 03/04/2023 Orders Only [facility] [address] [place] [phone] Edgardo Laurent DO [address] [facility] [place] [address] Minimal change disease; Type 2 [...] [facility] [address] [place] [phone] Edgardo Laurent DO [address] [facility] 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2) [facility] Protein, Urine 256 MG/DL [facility] Creatinine, Urine 174.2 MG/DL [facility] Comment: Testing performed or reported by [facility], a Service of [facility] [place], [address] [place] [id number] Wolfgang Moore MD, Camera Prototyping Engineer [facility]# [id number] Urine specimen (specimen) Urine specimen obtained by clean catch procedure / Unknown 03/08/2023 11:35 AM EDT 03/08/2023 12:57 PM EDT Edgardo Laurent DO LAB URINE ORDERABLES Final Resu lt Performing Organization Address [facility] de Phone Number [facility] * (ABNORMAL) Hemoglobin A1c (03/08/2023 11:31 AM EDT) Hemoglobin A1C 11.2(H) (4.0-5.6) % [facility] Comment: MONITORING: In known diabetic patients, hemoglobin A1c targets should be discussed with health care provider. DIAGNOSTIC USE: The [place] Diabetes [employer] (ADA) and the World Health [...] Supplement 1 Testing performed or reported by [facility], a Service of [facility] [place], [address] [place] [address] Wolfgang Moore MD, Camera Prototyping Engineer [facility]# [id number] Blood specimen (specimen) Venous blood / Unknown 03/08/2023 11:31 AM EDT 03/08/2023 11:35 AM EDT Edgardochino Laurent LAB BLOOD ORDERABLES Final Resu lt Performing Organization Address [facility] de Phone Number [facility] * (ABNORMAL) CBC (03/08/2023 11:31 AM EDT) White Blood Cells 12.3(H) (4.0-11.0) K/MM3 [facility] RBC 5.16 (4.20-5.40 ) M/MM3 [facility] Hgb 13.7 (11.7-15.5 ) GM/DL [facility] Hematocrit 44.6 (35.7-45.8 ) % [facility] MCV 86.4 (80.0-100. 0) FL [facility] MCH 26.6(L) (27.0-34.0 ) PG [facility] MCHC 30.7(L) (33.0-37.0 ) g/dL [facility] Platelets 367 (150-460) K/MM3 [facility] RDW-SD 48.6(H) (<47.0) FL [facility] MPV 10.5 (9.4-12.4) FL [facility] nRBC Count 0.0 #/100 WBC'S [facility] NRBC Absolute 0.0 K/MM3 [facility] Comment: Testing performed or reported by [facility], a Service of [facility] [place], [address] [place] [address] Wolfgang Moore MD, Camera Prototyping Engineer CLIA# [id number] Blood specimen (specimen) Venous blood / Unknown 03/08/2023 11:31 AM EDT 03/08/2023 11:35 AM EDT Edgardo Laurent LAB BLOOD ORDERABLES Final Resu lt Performing Organization Address [facility]/ZIP Co de Phone Number [facility] * Cyclosporine level (03/08/2023 11:31 AM EDT) Cyclosporine 315 (100-350) NG/ML [facility] Comment: Testing performed or reported by [facility], a Service of [facility] [place], [address] [place] [id number] Wolfgang Moore MD, Camera Prototyping Engineer CLIA# [id number] Blood specimen (specimen) Venous blood / Unknown 03/08/2023 11:31 AM EDT 03/08/2023 11:35 AM EDT Edgardo Laurent LAB BLOOD ORDERABLES Final Resu lt [facility] * (ABNORMAL) Comprehensive metabolic panel (03/08/2023 11:31 AM EDT) Glucose 81 (70-99) MG/DL [facility] BUN 34(H) (8-23) MG/DL [facility] Creatinine 1.1(H) (0.5-1.0) MG/DL [facility] Sodium 141 (133-145) MMOL/L [facility] Potassium 5.5(H) (3.6-5.2) MMOL/L [facility] Chloride 103 (98-107) MMOL/L [facility] Bicarbonate (CO2) 29 (22-29) MMOL/L [facility] Anion Gap 9 (4-17) [facility] Albumin 3.6 (3.4-4.8) GM/DL [facility] Calcium 10.6(H) (8.6-10.5) MG/DL [facility] Total Bilirubin 0.8 (0-1.2) MG/DL [facility] Protein, Total 6.4 (6.2-8.2) GM/DL [facility] A/G Ratio 1.3 [facility] AST (SGOT) 39(H) (0-32) U/L [facility] Alkaline Phosphatase 188(H) (35-104) U/L [facility] ALT (SGPT) 37(H) (0-33) U/L [facility] Est GFR Non 51 ML/MIN/1.7 3 M2 [facility] Comment: Creatinine based estimated glomerular filtration (eGFR) in adults is calculated using the National Kidney Foundation recommended 2020 CKD-EPI equation. Estimates GFR from serum creatinine, age and sex. 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
--- OUTSIDE RECORDS SUMMARY | 2025-05-24 13:17 | XMS_ITS | Clinical Summary ---
Author Organization [facility] Address [address] [place] [address] Care Team Providers Care Microsoft Crm Developer Name Role Phone Unavailable Primary Care Provider Unavailabl e Allergies Active Allergy Reactions Criticality Noted Date Comments Sulfa Antibiotics Rash Low 11/15/2019 Medications Medication Sig Dispensed Refills Start Date End Date Status aspirin 81 MG EC tablet Take 1 tablet (81 mg total) by mouth. 0 Active DULoxetine (CYMBALTA) DR capsule 30 mg Take 3 capsules (90 mg total) by mouth. 0 Active famotidine (PEPCID) 20 MG tablet Take ONE tablet every morning prior to breakfast and take TWO tablets prior to supper 0 01/13/2020 Active glucose blood test strip 0 03/05/2020 Active insulin detemir (Levemir) 100 UNIT/ML injection Inject under the skin. 0 07/14/2015 Active Insulin Lispro, 1 Unit Dial, 100 UNIT/ML SOPN Use as directed per sliding scale 0 11/03/2019 Active LORazepam (ATIVAN) 1 MG tablet Take 1 tablet (1 mg total) by mouth. 0 02/14/2015 Active losartan (COZAAR) 100 MG tablet Take 1 tablet (100 mg total) by mouth. 0 01/27/2023 Active metFORMIN (GLUCOPHAGE) tablet 500 mg Take 1 tablet (500 mg total) by mouth. 0 Active Multiple Vitamin (multivitamin) tablet Take 1 tablet by mouth. 0 Active Rover-3 Fatty Acids (Fish Oil) 1000 MG CAPS Take 1,000 mg by mouth. 0 Active rosuvastatin (CRESTOR) tablet 10 mg Take 1 tablet (10 mg total) by mouth. 0 11/24/2020 Active SITagliptin (JANUVIA) 50 MG tablet Take 1 tablet (50 mg total) by mouth. 0 12/28/2019 Active Active Problems Problem Noted Date Diagnosed Date Nephritic syndrome 03/01/2023 Social History Tobacco Use Types Packs/Day Years Used Date Smoking Tobacco: Never Assessed Sex and Gender Information Value Date Recorded Sex Assigned at Female 09/07/2023 3:36 PM EST Gender Identity Not on file Sexual Orientation Not on file Job Start Date Occupation Industry Not on file Not on file Not on file Last Filed Vital Signs Vital Sign Reading Time Taken Comments Blood Pressure 148/71 09/08/2023 8:43 AM EST Pulse 94 09/08/2023 8:43 AM EST Temperature 36.8 C (98.2 F) 09/08/2023 8:43 AM EST Respiratory Rate 18 09/08/2023 8:43 AM EST Oxygen Saturation 99% 09/08/2023 8:43 AM EST Inhaled Oxygen Concentration - - Weight 72 kg (158 lb 11.7 oz) 03/16/2023 8:37 AM EDT Height - - Body Mass Index - - Plan of Treatment Health Maintenance Due Date Last Done Comments COVID-19 Vaccine (#1) 1945 Depression Screening 1957 Preventative Health Evaluation 1963 DTap / Tdap / Td (1 - Tdap) 1964 Shingrix-Zoster Vaccine (1 of 2) 1995 Fall Risk Assessment 2010 Osteoporosis Screening (DEXA Scan) 2010 RSV Adult > 60+ Yrs or (1 - 1-dose 75+ series) 2020 Influenza Vaccine (#1) 2025 0, 08/09/2019, 06/30/2019, Additional history exists Pneumococcal Vaccine Completed 08/01/2020, 05/07/2015, 07/01/2014, Additional history exists Hepatitis B Vaccines Aged Out No long er eligible based on patient's age to complete this topic RSV Ped < 20 months Aged Out No longe r eligible based on patient's age to complete this topic
--- OUTSIDE RECORDS SUMMARY | 2025-05-24 13:17 | XMS_ITS | Encounter Summary ---
Author Organization [facility] Address [address] [place] [address] Phone Care Team Providers Care Underwriting Technician Name Role Phone Jhonatan Angel MD Primary Care Provider [phone] Encounter Details Date Type Department Care Team (Late Contact Info) Description 10/31/2024 Documentation Only [facility] [address] [place] [address] Edgardo Laurent DO [address] [facility] [place] [address] Social History Tobacco Use Types [...] [facility] [address] [place] [address] Edgardo Laurent DO [address] [facility] [place] [address] documented as of this encounter Visit Diagnoses Not on filedocumented in this encounter Care Teams Underwriting Technician Relationship Specialty Start Date End Date Jhonatan Angel MD [address] PCP - General Internal Medicine 06/17/20 documented as of this encounter
--- OUTSIDE RECORDS SUMMARY | 2025-05-24 13:17 | XMS_ITS | Clinical Summary ---
Author Organization [facility] Address [address] [place] [address] Phone Care Team Providers Care Wrapper Layer And Examiner Soft Work Name Role Phone Jhonatan Angel MD Primary Care Provider Allergies Active Allergy Reactions Criticality Noted Date Comments Sulfa (Sulfonamide Antibiotics) Anaphylaxis,Rash High 11/15/2019 Medications albuterol 90 mcg/actuation inhaler 2 puffs every 4 (four) hours as needed. 3 Active carvedilol (COREG) 6.25 MG tablet Take 1 tablet by mouth 2 (two) times a day. 3 Active DULoxetine (CYMBALTA) 60 MG capsule Take 1 capsule by mouth 2 (two) times a day. 3 Active BREO ELLIPTA 100-25 mcg/dose inhaler 1 puff daily. 3 Active LORazepam (ATIVAN) 1 MG tablet Take 1 mg by mouth 2 (two) times a day as needed. 3 Active losartan (COZAAR) 100 MG tablet Take 100 mg by mouth daily. 3 Active metFORMIN (GLUCOPHAGE) 500 MG tablet Take 500 mg by mouth daily. Active nystatin (MYCOSTATIN) 100,000 units/mL suspension as needed. 3 Active rosuvastatin (CRESTOR) 10 MG tablet Take 10 mg by mouth daily. Active memantine (NAMENDA) 10 MG tablet Take 10 mg by mouth 2 (two) times a day. 3 Active insulin degludec U-100 (TRESIBA) injection penIndications :Type 2 diabetes mellitus with hyperglycemia, with long-term current use of insulin Inject 48 Units under the skin nightly at bedtime. Dx E11.65 45 mL 2 3 Active BD INSULIN PEN NEEDLE UF SHORT 31 gauge x 02/08 NdleIndication s:Type 2 diabetes mellitus with hyperglycemia, with long-term current use of insulin 1 each by Miscellaneous route 4 (four) times a day before meals and nightly. Dx E11.65 400 each 3 3 Active cyanocobalamin , vitamin B-12, 1000 MCG tablet Take 0.5 tablets (500 mcg total) by mouth daily. 3 Active insulin aspart U-100 (NOVOLOG FLEXPEN U-100 INSULIN) 100 unit/mL (3 mL) injection penIndications :Type 2 diabetes mellitus with hyperglycemia, with long-term current use of insulin Inject 20-33 Units under the skin 3 (three) times a day with meals. 90 mL 1 4 Active Active Problems Problem Noted Date Diagnosed Date termite inspector current use of insulin 10/12/2023 correction current use of oral hypoglycemic drug 10/12/2023 GERD (gastroesophageal reflux disease) 4 Nephrotic syndrome 10/12/2023 RENETTA (obstructive sleep apnea) 10/12/2023 Hyperlipidemia 10/12/2023 Depression 04/22/2023 04/22/2023 Essential hypertension 04/22/2023 3 Assessment & Plan (10/12/2023 1:33 PM EST): Well controlled, managed by PCP/renal. Hypercholesterolemia 04/22/2023 04/22/2023 Type 2 diabetes mellitus 04/22/2023 023 Assessment & Plan (07/19/2023 8:39 AM EDT): Control is poor based upon the patient's readings in her log from her freestyle mariel 2 sensor. No severe hypoglycemia. She recently has been having lows into the 40- 60's in the evening before bed. She is correcting with glucose tablets which is taking a while to correct the lows. She won't use orange juice because she doesn't like it. Discussed to correct lows she doesn't have to just use orange juice she can use any juice (except grapefruit as is on a statin) to correct the lows. When discussing the cause of the lows, it is possible that the lows are due to not eating enough at dinner. Her diet is not the greatest. She may have en pashto muffin for breakfast, then lunch is cottage cheese with a can of mandarin oranges, and dinner is a protein, carb, and vegetable. Discussed the importance of needing protein within her meals to help prevent the glucose spikes from high carbohydrate meals. Discussed changing the can of mandarin oranges to fresh fruit as there is a lot of extra sugar in the can of oranges. She wants to get in to see a oil well service unit operator at [facility] but cannot get an appointment. Will have her meet with the educators at [facility] to help with her diet. Right now without being able to look at her sensor download cannot make aggressive insulin adjustments as cannot tell if the morning highs are due to rebounding from the evening lows. Will start with lowering her dinner time novolog to 26 units and then if she is not eating much for carbohydrates to lower further by 4 units to 22 units. Depending upon how things go with the dieticians will consider in the future working towards intensive insulin management. Will send the paperwork to [facility] to upgrade her sensor to the mariel 3 which will allow for continuous glucose monitoring rather than scanning to get data. Continue to work on eating healthy and being active. To call or message with any issues managing her glucose levels. Due to schedule ophtho appointment. Labs were done with PCP Assessment & Plan (04/26/2023 8:37 AM EDT): Control is poor based upon the patient's freestyle mariel 2 sensor download. No frequent or severe hypoglycemia. Her glucose levels are consistently elevated throughout the entire day. Will try changing her basal insulin from levemir to tresiba. The levemir is lasting less than 24 hours based upon her reader download, will change to the tresiba which should last up to 36 hours. Will increase her novolog to help with the post prandial spikes. Continue to work on eating healthy and being active. To call with any issues managing her glucose levels. Up to date with opho. Labs ordered today Vitamin D deficiency 04/22/2023 04/22/2023 Memory loss 11/15/2019 04/22/2023 Type 2 diabetes mellitus with peripheral neuropa thy Assessment & Plan (10/12/2023 1:27 PM EST): Control sub-optimal, although much improved based on CGM download, compared to last download over the Summer. No frequent or severe hypoglycemia. On review of CGM & her written log discovered she will hold insulins if sugar is low or even good. Discussed role of insulins to prevent high glucose levels & not just to lower glucose levels. Advised to treat lows & then give insulin once sugar has improved. Can give less insulin w/ meals if sugar low-amarilys or eating a smaller meal than normal. If sugar good but toward lower normal, advised to have snack at hs. Will call for more recent labs. Continue to work on eating healthy & keeping active. To call or send in BG with problems with glycemic control. Up to date with ophtho. Foot & nail care good. BP under reasonable control. Assessment & Plan (04/26/2023 8:33 AM EDT): Will check a Vitamin B12 level to determine if should have supplement to help with the neuropathy symptoms Immunizations Immunization Administration Dates Next Due Influenza, Unspecified Formulation 07/10,06/30/2019,08/17/2016,06/30 Pneumococcal conjugate, unsp ecified formulation 05/07/2015 Pneumococcal polysaccharide PPSV23 07/01/2014, Zoster unspecified formulation 05/08/2019 Social History Tobacco Use Types Packs/Day Years Used Date Smoking Tobacco: Former Cigarettes 1 22 Smokeless Tobacco: Never Tobacco Cessation:Counseling Given: Not Answered Alcohol Use Standard Drinks/Week Comments Never 0 (1 standard drink = 0.6 oz pur e alcohol) Education Answer Date Recorded Are you interested in more education? Not on tad e 03/16/2023 Are you concerned about learning? Not on file 03/16/2023 No 03/16/2023 No 03/16/2023 Digital Access Answer Date Recorded No 03/16/2023 No 03/16/2023 Reliable internet access at home? Not on file 03/16/2023 Device with a working camera? Not on file Comments Unknown Sex and Gender Information Value Date Recorded Sex Assigned at Not on file Legal Sex Female 10:59 AM EDT Gender Identity Not on file Sexual Orientation Not on file Last Filed Vital Signs Vital Sign Reading Time Taken Comments Blood Pressure 124/80 10/12/2023 8:58 AM EST Pulse 92 07/18/2023 1:20 PM EDT Temperature 36.6 C (97.8 F) 07/18/2023 1:20 PM EDT Respiratory Rate - - Oxygen Saturation 99% 07/18/2023 1:20 PM EDT Inhaled Oxygen Concentration - - Weight 70.9 kg (156 lb 3.2 oz) 10/12/2023 8:58 A M EST Height 149.9 cm (4' 11 ) 10/12/2023 8:58 AM EST Body Mass Index 31.55 10/12/2023 8:58 AM EST Plan of Treatment Health Maintenance Due Date Last Done Comments Adult Td,Tdap Booster 1945 DEPRESSION SCREENING 1957 SMOKING Hx and SMOKELESS TOBACCO SCREENING 1958 ZOSTER VACCINES (1 of 2) 1995 05/08/2019 OSTEOPOROSIS SCREENING INITIAL (ONE-TIME) 2010 PNEUMOCOCCAL VACCINES (50+ years) (3 of 3 - PCV) 07/01/2015 07/01/2014, 12/12/2006 RSV VACCINE (1 - 1-dose 75+ series) 2020 DIABETIC EYE EXAM 04/22/2023 HEMOGLOBIN A1C 11/19/2023 08/19/2023, 06/26, 04/22/2023, Additional history exists BLOOD PRESSURE 04/11/2024 10/12/2023 CREATININE LEVEL 04/26/2024 04/26/2023, 04/22/2023 POTASSIUM LEVEL 04/26/2024 04/26/2023, 04/22/2023 COVID-19 VACCINE ( season) 2024 HEPATITIS A VACCINES Aged Out No long er eligible based on patient's age to complete this topic HIB VACCINES Aged Out No longer eligi ble based on patient's age to complete this topic MENINGOCOCCAL VACCINES (ACWY) Aged Out No longer eligible based on patient's age to complete this topic MENINGOCOCCAL VACCINES (B) Aged Out N o longer eligible based on patient's age to complete this topic Medical Devices Not on file Procedures Procedure Name Priority Date/Time Associated Diagnosis Comments HEMOGLOBIN A1C Routine 04/22/2023 2:51 PM EDT Type 2 diabetes mellitus with hyperglycemia, with long-term current use of insulin BASIC METABOLIC PANEL Routine 04/22/2023 2:51 PM EDT Type 2 diabetes mellitus with hyperglycemia, with long-term current use of insulin from Last 3 Months or Most Recently Relevant to Health Maintenance Results * (ABNORMAL) Hemoglobin A1c (04/22/2023 2:51 PM EDT) HEMOGLOBIN A1C 11.7(H) 4.3 - 5.8 % [facility] Blood 04/22/2023 2:51 PM EDT 04/22/2023 2:53 PM EDT Jimena Velásquez PA-C LAB BLOOD ORDERABL ES Final Result [address] [address] * (ABNORMAL) Basic metabolic panel (04/22/2023 2:51 PM EDT) SODIUM 127(L) 133 - 146 mmol/L [facility] CHLORIDE 91(L) 96 - 108 mmol/L [facility] POTASSIUM 5.8(H) 3.3 - 5.1 mmol/L [facility] CO2 22 21 - 35 mmol/L [facility] BUN 33(H) 6 - 19 mg/dL [facility] CREATININE 1.20 0.5 - 1.5 mg/dL [facility] GLUCOSE 662(HH) 70 - 99 mg/dL [facility] Comment: Critical value: Results called to and read back by: Dr Bolton CALCIUM 10.5(H) 8.4 - 10.3 mg/dL [facility] EGFR 46(L) >59 mL/min/1.7 3m2 [facility] Comment:Estimated glomerular filtration rate calculated using the CKD-EPI refit equation. ANION GAP 20 10 - 20 mmol/L [facility] Blood 04/22/2023 2:51 PM EDT 04/22/2023 2:53 PM EDT Jimena Velásquez PA-C LAB BLOOD ORDERABL ES Final Result [facility] [address] [place] [address] from Last 3 Months or Most Recently Relevant to Health Maintenance Insurance [facility] MEDICARE REPLACEMENT [facility] MEDIC[facility] REPLACEMENT AETNA O MEDICARE REPLACEMENT AETNA O [facility]IC[facility] RE[facility] RE[facility] AETNA PPO MEDICARE REPLACEMENT [employer] Care Teams Wrapper Layer And Examiner Soft Work Relationship Specialty Start Date End Date Jhonatan Angel MD [address] [place] [address] PCP - General Internal Medicine 03/15/23 Additional Source Comments The information contained in this document represents components of the legal health record. It is not the complete legal health record.[facility]
--- OUTSIDE RECORDS SUMMARY | 2025-05-24 13:17 | XMS_ITS | Encounter Summary ---
Author Organization [facility], Address [address] [place] [address] Phone Care Team Providers Care Roller Coaster Designer Name Role Phone Jhonatan Angel MD Primary Care Provider [phone] Reason for Visit * Reason Comments Med Refill Encounter Details Date Type Department Care Team (Late Contact Info) Description 04/10/2024 Refill [facility], [address] [place] [id number] Edgardo Laurent [address] [place] [address] Minimal change disease; Type 2 diabetes mellitus with diabetic nephropathy (HCC); Stage 3a chronic kidney disease (HCC); Nephrotic syndrome Social History Tobacco Use Types Packs/Day Years [...] Visit [facility] [address] [place] [address] Edgardo Laurent, DO [address] 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
--- OUTSIDE RECORDS SUMMARY | 2025-05-24 13:17 | XMS_ITS | Clinical Summary ---
Author Organization [facility], Address [address] [place] [address] [place] [address] Phone Care Team Providers Care Supervisor Coin Machine Name Role Phone Jhonatan Angel MD Primary Care Provider [phone] Allergies Active Allergy Reactions Criticality Noted Date Comments Sulfa Antibiotics Other (see comments),Rash Low Medications famotidine (PEPCID) 20 MG tablet Take ONE tablet every morning prior to breakfast and take TWO tablets prior to supper Active Multiple Vitamin (MULTIVITAMIN) tablet Take 1 tablet by mouth 1 (one) time each day Active omega-3 (FISH OIL) 1000 MG capsule Take 1,000 mg by mouth twice a day Active aspirin (ST RIKA) 81 MG EC tablet Take 81 mg by mouth 1 (one) time each day Active DULoxetine (CYMBALTA) [address] capsule Take 90 mg by mouth 1 (one) time each day Active Insulin Lispro, 1 Unit Dial, 100 UNIT/ML solution pen-injector Use as directed per sliding scale Active SITagliptin (JANUVIA) 50 MG tablet Take 50 mg by mouth 1 (one) time each day Active insulin detemir (LEVEMIR) 100 UNIT/ML injection Inject 42 Units under the skin every night Active metFORMIN (GLUCOPHAGE) 500 MG tablet Take 500 mg by mouth 2 (two) times a day with meals Active rosuvastatin (CRESTOR) 10 MG tablet Take 10 mg by mouth 1 (one) time each day Active glucose blood test strip 0 Active LORazepam (ATIVAN) 1 MG tablet Take 1 tablet by mouth at bed time 5 Active losartan (COZAAR) 50 MG tablet Take 50 mg by mouth 1 (one) time each day 1 Active carvedilol (COREG) 3.125 MG tabletIndication s:Nephrotic syndrome,Minimal change disease,Type 2 diabetes mellitus with diabetic chronic kidney disease (HCC),Stage 3a chronic kidney disease (HCC) TAKE 1 TABLET(3.125 MG) BY MOUTH IN THE MORNING AND IN THE EVENING WITH MEALS 180 tablet 3 5 Active cycloSPORINE (SandIMMUNE) 100 MG capsuleIndicatio ns:Minimal change disease,Type 2 diabetes mellitus with diabetic nephropathy (HCC),Stage 3a chronic kidney disease (HCC),Nephrotic syndrome TAKE 2 CAPSULES BY MOUTH EVERY MORNING AND 2 CAPSULES BY MOUTH IN THE EVENING 360 capsule 3 5 Active Active Problems Problem Noted Date Diagnosed Date Oral thrush 10/07/2020 Stage 3a chronic kidney disease 11/15/2019 Overview (09/29/2020): Update for Diagnosis Load Memory loss 11/15/2019 Anti-nuclear factor detected Vitamin D deficiency Type 2 diabetes mellitus Proteinuria Nephrotic syndrome 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): biopsy-proven Hypercholesterolemia Essential hypertension Elevated C-reactive protein (CRP) Encounters Date Type Department Care Team Description 04/17/2025 Office Communication [facility] [address] [place] [address] Ketan Sutherland [place] 04/17/2025 Refill [facility] [address] [place] [address] Edgardo Laurent DO Minimal change disease; Type 2 diabetes mellitus with diabetic nephropathy (HCC); Stage 3a chronic kidney disease (HCC); Nephrotic syndrome 04/10/2025 3:30 PM EDT Office Visit [facility] [address] [place] [address] Edgardo Laurent DO Type 2 diabetes mellitus with diabetic nephropathy (HCC) (Primary Dx); Minimal change disease; Memory loss; Nephrotic syndrome from Last 3 Months Immunizations Immunization Administration Dates Next Due Influenza Split High Dose Preservative Free IM 1 10/17/2015,06/30/2015 Influenza Vaccine, Quadrivalent, Adjuvanted 06/26 Influenza, Trivalent, Adjuvanted 06/30/2019 Pneumococcal Conjugate 13-Valent 05/07/2015 Pneumococcal Polysaccharide 07/01/2014, 7 Zoster 05/08/2019 Family History Medical History Relation Comments Other Brother due to a fall resulting in a intracerebral bleed Squamous cell carcinoma Brother Cancer Daughter of the fallopian tubes, ovarian and uterine Heart attack Father Hypertension Father Gout Mother Hypertension Mother Parkinsonism Mother Stroke Mother Breast cancer Mother's Sister Esophageal cancer Paternal Grandfather Cancer Sibling sqamous cell Relation Status Comments Brother Daughter Father Mother Mother's Sister Paternal Grandfather Sibling Social History Tobacco Use Types Packs/Day Years [...] Sign Reading Time Taken Comments Blood Pressure 104/68 12/23/2023 3:35 PM EDT Pulse 72 12/23/2023 3:35 PM EDT Temperature - - Respiratory Rate - - Oxygen Saturation - - Inhaled Oxygen Concentration - - Weight 67.1 kg (148 lb) 07/18/2019 12:00 PM EDT Height 160 cm (5' 3 ) 07/18/2019 12:00 PM EDT Body Mass Index 26.22 07/18/2019 12:00 PM EDT Plan of Treatment Upcoming Encounters Date Type Department Care Team (Late st Contact Info) Description 08/16/2025 3:15 PM EST Office Visit [facility], [address] [place] [address] Edgardo Laurent DO [address] [place] [address] Health Maintenance Due Date Last Done Comments Diabetes: Ophthalmology Exam 11/15/2019 Diabetes: Pedal Pulse Checked 11/15/2019 Diabetes: Sensory Foot Exam 11/15/2019 Diabetes: Visual Foot Exam 11/15/2019 Diabetes: Hemoglobin A1C 11/19/2023 023, 07/05/2023, 03/08/2023, Additional history exists Influenza Vaccine (#1) 2025 0, 06/30/2019, 08/17/2016, Additional history exists Pneumococcal Vaccine: 50+ Years Completed 05/07/2015, 07/01/2014, 12/12/2006 Pneumococcal Vaccine: Peds (0 to 5 Years) and At-Risk Patients (6 to 49 Years) Discontinued 05/07/2015, 07/01/2014, 12/12/2006 Hepatitis B Vaccine Aged Out No longe r eligible based on patient's age to complete this topic Procedures Procedure Name Priority Date/Time Associated Diagnosis Comments HEMOGLOBIN A1C Routine 08/19/2023 4:01 PM EST Nephrotic syndrome 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 DIAGNOSTIC USE: The [place] Diabetes Association (ADA) and the World Health [...] Supplement 1 Testing performed or reported by [facility] [employer], a Service of [facility], [address] [place] [id number] Wolfgang Moore MD, Administration Specialist [facility]# [id number] Blood specimen (specimen) Venous blood / Unknown 08/19/2023 4:01 PM EST 08/19/2023 4:02 PM EST us Edgardo Laurent DO LAB BLOOD ORDERABLES Final Resu lt [facility] from Last 3 Months or Most Recently Relevant to Health Maintenance Insurance Aetna MCR Adv PPO [phone]) Care Teams Supervisor Coin Machine Relationship Specialty Start Date End Date Jhonatan Angel MD [address] PCP - General Internal Medicine 06/17/20
[2025-05-24 13:21] VITALS: BMI 27.8
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
== END 2025-05-24 14:02 | disposition home or self-care (01) ==
LOC: HO.HNS 12:49
PROVIDERS: PCP Internal Medicine; Referring Provider Internal Medicine; Visit Provider Neurological Surgery
DX: M51.362 Other intervertebral disc degeneration, lumbar region with discogenic back pain and lower extremity pain (principal)
CPT/HCPCS: 99204

== ENCOUNTER → 2025-05-24 12:49 | Outpatient (BNVA) | payer MEDICARE, SELFPAY | PROVIDERS: PCP Internal Medicine; Referring Provider Internal Medicine; Visit Provider Neurological Surgery | DX: M51.362 Other intervertebral disc degeneration, lumbar region with discogenic back pain and lower extremity pain (principal) | CPT/HCPCS: 99202 ==